=== PATIENT | female | born 1970 | race American Indian/Alaskan Native ===

== ENCOUNTER 2017-04-27 18:53 | Emergency (ER) | payer OTHER ==
[2017-04-27 20:47] LABS: Bilirubin,Urine NEG (Negative); Blood,Urine NEG (Negative); Ketones,Urine NEG (Negative); Leukocyte Esterase,Urine NEG (Negative); Mucus,Urine 2+ /HPF; Nitrite,Urine NEG (Negative); Protein,Urine <15 mg/dL mg/dL (Negative); Urobilinogen,Urine < 2.0 mg/dL (<2.0); WBC,Urine < 1.0 /HPF (0.0-6.0)
[2017-04-27 22:59] LABS: Eosinophils % (Auto) 4.1 % (0.0-4.3); Hematocrit 39.2 % (30.3-42.9); Mean Corpuscular HGB Conc 33 % (30-34); Mean Corpuscular Hemoglobin 29 pg (28-32); Mean Corpuscular Volume 89 fl (79-97); Platelet Count 232 K/mm3 (140-440); Red Blood Count 4.43 M/mm3 (3.65-5.03); Red Cell Distribution Width 13.8 % (13.2-15.2); White Blood Count 5.6 K/mm3 (4.5-11.0)
[2017-04-27 23:26] LABS: Anion Gap 18 mmol/L; BUN/Creatinine Ratio 15.71; Blood Urea Nitrogen 11 mg/dL (7-17); Calcium 8.9 mg/dL (8.4-10.2); Carbon Dioxide 24 mmol/L (22-30); Chloride 106.2 mmol/L (98-107); Glucose 57 mg/dL (65-100); Potassium 4.2 mmol/L (3.6-5.0); Sodium 144 mmol/L (137-145)
[2017-04-27] MEDS ORDERED: MOTRIN PO ONE (23:49)
--- NOTE | 2017-04-27 23:54 | Emergency Department Report ---
ED Chest Pain HPI - General Chief Complaint: Chest Pain Stated Complaint: PAIN ALL OVER BODY AND DIZZY Time Seen by Provider: 04/27/17 23:19 Source: patient Mode of arrival: Ambulatory Limitations: No Limitations - History of Present Illness Initial Comments: Patient is a 46-year-old female with history of hyperlipidemia and significant family history of coronary artery disease with her father dying of an LA at the age of 60, her brother having a previous LA as well as her brother's son having of a LA at the age of 30 presenting today because of chest pain. Patient states that the pain started more in the left lower ribs and sometimes goes up to the left chest and down to her left flank. States that the pain is worse with deep breaths, turning, moving or walking. She has not had any cough or hemoptysis. Has not had any recent major surgeries and is not on any oral contraceptive pills. No leg pain or swelling although she is complaining about some cramping to her left foot. Has no shortness of breath or nausea, vomiting or diaphoresis. States that the pain started this morning when she woke up and does not recall any recent trauma including falls or car accidents. She has no personal history of coronary artery disease and has never seen a radiology director. He has no dysuria or hematuria or urinary frequency. Severity scale (0 -10): 10 - Related Data Home Medications Medication Instructions Recorded Confirmed Last Taken Simvastatin [Zocor TAB] 20 mg PO QHS 04/27/17 04/27/17 Unknown Allergies Allergy/AdvReac Type Severity Reaction Status Date / Time No Known Allergies Allergy Unverified 04/27/17 19:54 Heart Score - HEART Score History: Slightly suspicious EKG: Normal Age: 45-65 Risk factors: 1-2 risk factors Troponin: < normal limit HEART Score: 2 - Critical Actions Critical Actions: 0-3 pts:0.9-1.7%risk of adverse cardiac event.Candidate for discharge ED Review of Systems ROS: Stated complaint: PAIN ALL OVER BODY AND DIZZY Other details as noted in HPI Comment: All other systems reviewed and negative Constitutional: denies: chills, fever Respiratory: denies: cough, shortness of breath Cardiovascular: chest pain Gastrointestinal: denies: nausea, vomiting Skin: denies: rash Neurological: denies: headache Psychiatric: denies: anxiety ED Past Medical Hx - Past Medical History Previous Medical History?: Yes Additional medical history: HIGH CHOLESTEROL - Surgical History Past Surgical History?: Yes Additional Surgical History: C SECTION X 2 - Social History Smoking Status: Current Every Day Smoker Substance Use Type: None - Medications Home Medications: Home Medications Medication Instructions Recorded Confirmed Last Taken Type Simvastatin [Zocor TAB] 20 mg PO QHS 04/27/17 04/27/17 Unknown History ED Physical Exam - General Limitations: No Limitations General appearance: alert - Head Head exam: Present: atraumatic - Eye Eye exam: Present: normal appearance - ENT ENT exam: Present: normal exam - Respiratory Respiratory exam: Present: normal lung sounds bilaterally. Absent: respiratory distress - Cardiovascular Cardiovascular Exam: Present: regular rate, normal rhythm, other (tenderness along the left lower ribs) - GI/Abdominal GI/Abdominal exam: Present: soft. Absent: distended, tenderness - Extremities Exam Extremities exam: Present: normal inspection. Absent: calf tenderness - Neurological Exam Neurological exam: Present: alert, oriented X3 - Psychiatric Psychiatric exam: Present: normal affect - Skin Skin exam: Present: intact ED Course Vital Signs 04/27/17 04/27/17 04/27/17 19:54 21:11 21:20 Temperature 98.4 F Pulse Rate 72 50 L 73 Respiratory 16 16 Rate Blood Pressure 117/80 118/78 O2 Sat by Pulse 100 Oximetry 04/27/17 04/27/17 04/28/17 21:36 21:37 00:14 Temperature 98.4 F Pulse Rate Respiratory 18 18 Rate Blood Pressure O2 Sat by Pulse Oximetry ED Medical Decision Making - Lab Data Result diagrams: 04/27/17 20:11 04/27/17 20:11 - Medical Decision Making Patient has a significant family history and hyperlipidemia but her sensory and physical is not typical for acute coronary syndrome. Her EKG shows normal sinus rhythm without any ST-T changes, isolated T-wave inversion in V2, irregular QRS, normal axis Labs show 2 troponins are negative, d-dimer is also been ordered due to pleuritic chest pain as well as a chest x-ray The troponin is negative, d-dimer is negative, chest x-ray does not show any acute disease Patient has a heart score of 2 due to her risk factors and age I offered the patient inpatient admission for chest pain versus following up with a radiology director. Patient strongly preferred to go home. This is reasonable given a heart score 2 Repeat EKG shows normal sinus rhythm at a rate of [address]-T changes Patient is stable for discharge Critical care attestation.: If time is entered above; I have spent that time in minutes in the direct care of this critically ill patient, excluding procedure time. ED Disposition Clinical Impression: Chest pain Qualifiers: Chest pain type: unspecified Qualified Code(s): R07.9 - Chest pain, unspecified Disposition: TO HOME OR SELFCARE Is pt being admited?: No Does the pt Need Aspirin: No Condition: Stable Instructions: Chest Pain (ED) Additional Instructions: Please follow up with the primary care doctor and the radiology director in the next 2 -3 days. Return to emergency room if you have severe chest pain, difficulty breathing, nausea, vomiting or unusual sweating. Referrals: ALEX CASAS MD [Staff Physician] - 3-5 Days PRIMARY CARE, [Primary Care Provider] - 3-5 Days
[2017-04-28 01:13] VITALS: BP 128/89
--- NOTE | 2017-04-28 07:28 | XRay Report ---
CHEST 2 VIEWS INDICATION: Chest pain. COMPARISON: None similar at this institution. FINDINGS: PA and lateral chest radiographs demonstrate normal cardiomediastinal silhouette. Clear lungs. Intact bones. EKG leads. CONCLUSION: No acute disease in the chest. Thank you for the opportunity to participate in this patient's care.
== END 2017-04-28 01:15 | disposition home or self-care (01) ==
LOC: ED 18:53
DX: R07.9 Chest pain, unspecified (principal); E78.00 Pure hypercholesterolemia, unspecified; F17.200 Nicotine dependence, unspecified, uncomplicated
CPT/HCPCS: 36415; 71020; 80048; 81001; 84484; 84702; 85025; 85379; 93005; 93010